=== PATIENT | male | born 1955 | race Caucasian/White ===

== ENCOUNTER 2017-08-09 06:11 | Inpatient (IN) | payer BC, MEDICARE ==
[2017-08-09] VITALS (7 sets, daily range): PULSE 77–96; O2SAT 92–95
[~2017-08-09] VITALS: Ht 177.8 cm; Wt 71.9 kg
[~2017-08-09 06:11] MED LIST: AMLO10TA2 PO; ASPI81TA23 PO; CYMB60CA PO; EPIP0.3I SQ; EZET10 PO; FENO160T PO; FENT75DI T-DERMAL; LISI-515 PO; MELO7.5T27 PO; MORP1TAB25 PO; OMEP40CA2 PO; TRAZ1TAB14 PO; [UNRECOGNIZED DRUG - CODE] SQ
[2017-08-09] MEDS ORDERED: PROTAMINE SULFATE 50 MG/5 ML VIAL ONE ×2 (06:51→11:13)
[2017-08-09] MEDS ORDERED: HEPARIN SODIUM - SQ 10,000 UNITS/ML VIAL ONE (06:51)
[2017-08-09] MEDS ORDERED: HEPARIN SODIUM - IV 10,000 UNITS/10 ML VIAL ONE ×2 (06:51→07:08)
[2017-08-09] MEDS ORDERED: VANCOMYCIN HCL 1000 MG VIAL ONE (06:51)
[2017-08-09] MEDS ORDERED: HEPARIN-NS/PF INJ 500 ML ONE (06:52)
[2017-08-09] MEDS ORDERED: BUPIVACAINE HCL PF 0.5% 30 ML VIAL ONE (06:52)
[2017-08-09] MEDS ORDERED: THROMBIN (TOPICAL) 20,000 UNIT SPRAY KIT ONE (06:52)
[2017-08-09] MEDS ORDERED: RIFAMPIN INJ 600 MG VIAL ONE (06:53)
[2017-08-09] MEDS ORDERED: SODIUM CHLORIDE 0.9% INJ 0 ML ONE (06:54)
[2017-08-09] MEDS ORDERED: SODIUM CHLORID 0.9% 500 ML IV PRN (07:00)
[2017-08-09] MEDS ORDERED: CHLORHEXIDINE GLUCONATE 2 % 1 PACK (2 CLOTHS) TOPICAL PRN (07:00)
[2017-08-09] MEDS ORDERED: LACTATED RINGER'S 1000 ML IV PRN (07:00)
[2017-08-09] MEDS ORDERED: POVIDONE IODINE 5% (ANTISEPSIS KIT) 4 APPLICATIONS EACH NARE PRN (07:00)
[2017-08-09] MEDS ORDERED: METOPROLOL TARTRATE 25 MG TAB PO PRN (07:00)
[2017-08-09] MEDS ORDERED: METO25TA3 PO (07:13)
--- NOTE | 2017-08-09 07:18 | PD.VS.PN ---
Pre-operative Note Pre-operative diagnosis: TAAA Planned procedure: Open retroperitoneal repair of TAAA Interval History: Pt is appropriately anxious but no other changes in health since I saw him in clinic. Ready for surgery. Labs: Hct 38 plt 401 creatinine 1.1 INR 1.0 UA negative Blood: T&C 4U PRBC T&C 4U FFP EKG: NSR, no acute ST changes TTE EF 57% Imaging: CXR negative for acute process CTA Reviewed again: 6.1 cm TAAA Orders: NPO Vanc 1g IV OCTOR (PCN Allergy) Post-operative destination: CVICU Operative site marked: Yes Consent: Informed consent has been obtained from Abdiel Sutton. I have explained the procedure in detail and discussed the risks, benefits, and potential complications. All questions have been answered. Patient contact information: Sister (Shannon) [phone] Alex Johnson MD Aug 09, 2017 07:18
[2017-08-09] MEDS ORDERED: MANNITOL INJ 100 ML ONE (10:02)
[2017-08-09] MEDS ORDERED: BUPIVACAINE LIPOSOME PF 1.3% 20 ML VIAL ONE (11:42)
--- NOTE | 2017-08-09 11:51 | HHI.PR ---
Immediate Post Op Note Procedure Date: Aug 09, 2017 Pre Op Diagnosis: TAAA Post Op Diagnosis: TAAA Surgeon: Alex Johnson Setter Up(s): Rachel Bay Procedure: 1. Retroperitoneal repair of TAAA with 20mm Dacron (23 minute supramesenteric X- clamp) 2. L renal artery bypass with 6mm Dacron 3. MAGUE reimplantation Findings: Successful repair + Doppler signals in SMA, B renals and feet at conclusions Complications: none apparent Specimen(s) removed: none for pathology Estimated blood loss: 1000mL Anesthesia: General Drains: None Fluids: 2500mL x'oid; 2U FFP; 500mL Cellsaver IVF Urinary Output (mLs): 300 Patient to: CVICU Patient Condition: Fair Implant/Devices: SEE IMPLANT LOG (if applicable) Date/Time of Procedure: SEE SURGICAL CARE RECORD Alex Johnson MD Aug 09, 2017 11:51
[2017-08-09] MEDS ORDERED: NALOXONE HCL 0.4 MG/ML AMP IV PUSH PRN (12:00)
[2017-08-09 13:02] LABS: HEMATOCRIT 28.8 % (39.0-51.0); MEAN CELL VOLUME 91.4 FL (80.0-100.0); MEAN CORPUSCULAR HEMOGLOBIN 29.7 PG (27.0-34.0); MEAN CORPUSCULAR HGB CONC 32.5 % (32.0-36.0); PLATELET COUNT 209 TH/MM3 (150-450); RED BLOOD COUNT 3.14 MIL/MM3 (4.50-5.90); RED CELL DISTRIBUTION WIDTH 14.1 % (11.6-17.2); REVIEW FLAG FINAL; WHITE BLOOD COUNT 15.5 TH/MM3 (4.0-11.0)
[2017-08-09] MEDS: D5-1/2 NS + KCL 20 MEQ INJ 1,000 ML IV SCH (13:37)
[2017-08-09] MEDS: MORPHINE SULFATE 30 MG/30 ML PCA IV SCH ×2 (13:39→17:41)
[2017-08-09 13:54] LABS: BICARBONATE 26.3 MEQ/L (21.0-32.0); POTASSIUM 4.1 MEQ/L (3.5-5.1)
[2017-08-09] MEDS: PCA - TOTAL MG MORPHINE DELIVERED PER SHIFT SCH ×2 (14:00→22:00)
[2017-08-09] MEDS: hydrALAZINE HCL 20 MG/ML VIAL IV PUSH PRN ×2 (14:29→18:23)
[2017-08-09] MEDS ORDERED: DEXTROSE 50% IN WATER 50 ML VIAL(D50) IV PUSH PRN (14:30)
[2017-08-09] MEDS ORDERED: GLUCAGON 1 MG/ML VIAL OTHER PRN (14:30)
[2017-08-09] MEDS: METOPROLOL TARTRATE 5 MG/5 ML VIAL IV PUSH PRN ×2 (14:30→20:19)
--- NOTE | 2017-08-09 14:45 | RADRPT ---
EXAM DATE/TIME: 08/09/2017 14:10 [facility] COMPARISON: No previous studies available for comparison. INDICATIONS : Post thoracic aortic aneurysm repair. MEDICAL HISTORY : None. SURGICAL HISTORY : None. ENCOUNTER: Initial ACUITY: 1 day PAIN SCORE: 9/10 LOCATION: Bilateral chest FINDINGS: Chest tube in place on the left. Sternal wires are noted. Nasogastric tube and central venous marge ter in good position. There is no pneumothorax. Lungs are clear. position. CONCLUSION: Left chest tube without pneumothorax. Support apparatus in good position. Robin Calloway MD FACR on August 09, 2017 at 14:41 Board Certified Radiologist. This report was verified electronically.
--- NOTE | 2017-08-09 15:05 | PD.CONS ---
[facility] Service Critical Care Medicine Consult Requested By Dr. Johnson Reason for Consult S/P open thoracoabdominal aneurysm repair Primary Care Physician No Primary Care Physician History of Present Illness This is a 61-year-old male that presented with 6.1 cm thoracic abdominal aortic aneurysm. Date the patient underwent an open retroperitoneal thoracoabdominal aneurysm repair with placement of chest tube. Operative report pending at time of dictation. Intraoperatively the patient received 3200 cc of crystalloid, 500 cc of Cell Saver, 2 units of FFP, with an estimated blood loss of approximately 1 L. The patient was extubated and transferred to CVICU. Critical care medicine was consulted. Upon my assessment the patient was noted to have systolic blood pressure in the 160s, when necessary antihypertensives initiated, patient complaining of extreme pain 10/10 on VAS pain scale.Patient reeducated on utilization of NUT PROCESS HELPER morphine pump. Review of Systems ROS Limitations: Clinical Condition (lethargic) Past Family Social History Allergies: Coded Allergies: Penicillins (Verified Allergy, Severe, SWELLING OF FACE AND HANDS, 08/09/17 ) Efbekwx-Sem-Smj Reductase Inhibitor (Verified Allergy, Severe, MUSCLE WEAKNESS AND CRAMPING, 08/09/17) bee venom protein (honey bee) (Verified Allergy, Severe, ANAPHYLAXIS, 08/09) Past Medical History COPD, achalasia, arthritis, coronary artery disease, skin cancer, depression, hypertension with history of PR Past Surgical History Knee surgery, splenectomy, wrist surgery, finger trigger release, back surgery and CABG Reported Medications Reviewed Active Ordered Medications See MAR, reviewed Family History Father of heart disease Social History History of smoking 2 packs a day and quit 2003. Patient is . Denied illicit drug use. Physical Exam Vital Signs Vital Signs Date Time Temp Pulse Resp B/P (MAP) Pulse Ox O2 Delivery O2 Flow Rate FiO2 08/09/17 13:39 16 08/09/17 13:00 77 08/09/17 07:04 98.7 70 20 180/97 (124) 96 Physical Exam GENERAL: Well-developed well-nourished male lethargic, in mild distress secondary to postoperative pain SKIN: Warm and dry. HEAD: Atraumatic. Normocephalic. EYES: Pupils equal and round. No scleral icterus. No injection or drainage. ENT: No nasal bleeding or discharge. Mucous membranes pink and moist. NECK: Trachea midline. No JVD. CARDIOVASCULAR: Normal rate, regular rhythm. RESPIRATORY: No accessory muscle use. Clear to auscultation. Breath sounds equal bilaterally. Currently on facemask, left chest tube 20 cm of suction no air leak noted GASTROINTESTINAL: Abdomen soft, non-tender, nondistended. No guarding. Incision site with Dermabond no drainage oozing or erythema, abdominal binder in place MUSCULOSKELETAL: Extremities without clubbing, cyanosis, or edema. No obvious deformities biphasic dopplerable and palpable pulses bilateral DP and PT. NEUROLOGICAL: Somnolent, easily arousable. RASS -1. No gross focal/sensory deficits. Follows commands in all 4 extremities. Laboratory Laboratory Tests Test 08/09/17 12:30 White Blood Count 15.5 Red Blood Count 3.14 Hemoglobin 9.4 Hematocrit 28.8 Mean Corpuscular Volume 91.4 Mean Corpuscular Hemoglobin 29.7 Mean Corpuscular Hemoglobin Concent 32.5 Red Cell Distribution Width 14.1 Platelet Count 209 Mean Platelet Volume 7.9 Blood Urea Nitrogen 27 Creatinine 1.20 Random Glucose 220 Calcium Level 7.8 Sodium Level 139 Potassium Level 4.1 Chloride Level 104 Carbon Dioxide Level 26.3 Anion Gap 9 Estimat Glomerular Filtration Rate 62 Result Diagram: 08/09/17 1230 08/09/17 1230 Imaging Postoperative Chest x-ray pending Septic Shock Reassessment Heart: Regular rate and rhythm Lungs: Clear Skin: Warm Peripheral Pulses: Bounding Right Radial Bounding Left Radial Bounding Right Dorsalis Pedis Bounding Left Dorsalis Pedis Bounding Right Posterior Tibial Bounding Left Posterior Tibial Capillary Refill: Brisk Assessment and Plan Problem List: (1) Postoperative pain ICD Code: G89.18 - Other acute postprocedural pain Status: Acute (2) Chronic pain disorder ICD Code: G89.4 - Chronic pain syndrome Status: Chronic (3) COPD (chronic obstructive pulmonary disease) ICD Code: J44.9 - Chronic obstructive pulmonary disease, unspecified Status: Chronic (4) Thoracoabdominal aortic aneurysm (TAAA) without rupture ICD Code: I71.6 - Thoracoabdominal aortic aneurysm, without rupture Status: Acute Assessment and Plan This is a 61-year-old male status post open thoracoabdominal aneurysm repair. Assessment S/P thoracoabdominal aneurysm repair POD #0 Postoperative pain Hyperglycemia COPD Plan Plan by systems: Neurologic: Morphine infusion pump NUT PROCESS HELPER Add multimodal pain analgesia-Ofirmev 1 g every 6 hours 24 hours scheduled Neurochecks per ICU protocol Respiratory: Maintain O2 sat greater than 92% Patient currently on facemask weaned down to nasal cannula Initiate incentive spirometry tomorrow DuoNeb every 4 hours when necessary F/U post op chest x-ray Cardiovascular: Maintain systolic blood pressure per Vasc Surgery recommendations <140 mmHg Hydralazine 20 mg every 6 hours PRN SBP > 150mmHg Metoprolol 2.5 mg q 6 hr Renal: Maintain zapien -- Strict I/Os FEN/GI: Maintain NPO status Monitor BMP Zofran for nausea Heme/ID: Follow-up CBC. Postop hemoglobin 9.6 Obtain cultures if clinically indicated Endocrine: Glucose level 220 , maintain < 180mg/dl Glucose monitoring per ICU protocol. Low dose regimen -- SSI Prophylaxis: GI Prophylaxis famotidine DVT Prophylaxis -- SCDs Initiation of pharmacological DVT prophylaxis per vascular surgery recommendations lovenox on 08/10 Lines: Right IJ 08/09 intraop, refer IVs 2 Dispo: This patient remains critically ill with one or more organ systems which are or may become a threat to life. I have spent in excess of 45 minutes discontinuously in the care and management of this patient. This time is exclusive of procedures, and includes, but is not limited to, evaluation of the patient, review of the medical record, discussions with family, consultants, nursing staff, or respiratory therapy, and documentation in the medical record. Code Status Full Discussed Condition With Dr. Johnson, and CONTINUOUS PROCESS MACHINE OPERATOR at bedside (Zara Fernandez MD Aug 09, 2017 15:05
[2017-08-09] MEDS ORDERED: ONDANSETRON HCL 4 MG/2 ML VIAL IV PUSH PRN (15:15)
[2017-08-09] MEDS: ACETAMINOPHEN 1000 MG/100 ML 100 ML IV SCH ×2 (15:47→20:18)
[2017-08-09] MEDS: INSULIN ASPART SUPPLEMENTAL SCALE SQ SCH ×2 (16:55→20:19)
[2017-08-09] MEDS: ATORVASTATIN 40 MG TAB PO SCH ×2 (19:54→19:57)
[2017-08-09] MEDS: FAMOTIDINE 20 MG/2 ML VIAL IV PUSH SCH (20:19)
[2017-08-09] MEDS: niCARdipine INJ 25 MG in SODIUM CHLOR 0.9% 250 ML INJ 240 ML IV PRN (22:53)
[2017-08-09] MEDS: oxyCODONE/ACETAMINOPHEN 10 MG/325 MG TAB PO PRN (23:45)
[2017-08-10] VITALS (9 sets, daily range): BP systolic 131–163; BP diastolic 48–83; PULSE 85–98; RESP 16–18; TEMP 98.5–99.1; O2SAT 91–98
[2017-08-10] MEDS: MORPHINE SULFATE 30 MG/30 ML PCA IV SCH ×2 (00:48→13:51)
[2017-08-10] MEDS: D5-1/2 NS + KCL 20 MEQ INJ 1,000 ML IV SCH (00:55)
[2017-08-10] MEDS: niCARdipine INJ 25 MG in SODIUM CHLOR 0.9% 250 ML INJ 240 ML IV PRN ×3 (01:22→06:42)
[2017-08-10] MEDS: hydrALAZINE HCL 20 MG/ML VIAL IV PUSH PRN ×5 (02:20→23:57)
[2017-08-10] MEDS: ACETAMINOPHEN 1000 MG/100 ML 100 ML IV SCH ×2 (02:20→10:22)
[2017-08-10] MEDS: PCA - TOTAL MG MORPHINE DELIVERED PER SHIFT SCH ×3 (06:00→22:00)
[2017-08-10 06:08] LABS: HEMATOCRIT 30.5 % (39.0-51.0); MEAN CELL VOLUME 90.3 FL (80.0-100.0); MEAN CORPUSCULAR HEMOGLOBIN 30.5 PG (27.0-34.0); MEAN CORPUSCULAR HGB CONC 33.7 % (32.0-36.0); PLATELET COUNT 237 TH/MM3 (150-450); RED BLOOD COUNT 3.38 MIL/MM3 (4.50-5.90); RED CELL DISTRIBUTION WIDTH 13.9 % (11.6-17.2); REVIEW FLAG FINAL; WHITE BLOOD COUNT 10.9 TH/MM3 (4.0-11.0)
[2017-08-10] MEDS: oxyCODONE/ACETAMINOPHEN 10 MG/325 MG TAB PO PRN ×2 (06:15→20:55)
[2017-08-10] MEDS: METOPROLOL TARTRATE 5 MG/5 ML VIAL IV PUSH PRN (06:47)
[2017-08-10] MEDS: INSULIN ASPART SUPPLEMENTAL SCALE SQ SCH ×4 (08:00→21:00)
[2017-08-10] MEDS ORDERED: RESP: ALBUTEROL 2.5 MG/IPRATROPIUM 0.5 MG NEB (PRN) NEB (08:15)
[2017-08-10] MEDS: RESP: ALBUTEROL 2.5 MG/IPRATROPIUM 0.5 MG NEB (PRN) NEB ×2 (08:45→11:42)
--- NOTE | 2017-08-10 09:08 | HHI.CCPN ---
Subjective Remarks/Hospital Course This is a 61-year-old male that presented with 6.1 cm thoracic abdominal aortic aneurysm. Date the patient underwent an open retroperitoneal thoracoabdominal aneurysm repair with placement of chest tube. Operative report pending at time of dictation. Intraoperatively the patient received 3200 cc of crystalloid, 500 cc of Cell Saver, 2 units of FFP, with an estimated blood loss of approximately 1 L. The patient was extubated and transferred to CVICU. Critical care medicine was consulted. Upon my assessment the patient was noted to have systolic blood pressure in the 160s, when necessary antihypertensives initiated, patient complaining of extreme pain 10/10 on VAS pain scale.Patient reeducated on utilization of LOADMASTER morphine pump. Subjective: 08/10: Afebrile. Patient hypertensive during the night was placed on a nicardipine infusion, with noted high-volume IV fluids, inability to concentrate. Patient placed on this a.m., Catapres patch, labetalol with increased frequency as well as hydralazine and weaning off nicardipine to maintain SBP 140's. Patient noted to be in chronic pain VAS scale 10 over 10, fentanyl patch noted to be greater than 4 days, fentanyl patch 0.75 mics every 72 hours renewed. Patient continues on morphine LOADMASTER. FiO2 noted requirements noted to be increased patient now on facemask chest x-ray pending. Objective Vital Signs Date Time Temp Pulse Resp B/P (MAP) Pulse Ox O2 Delivery O2 Flow Rate FiO2 08/10/17 08:47 92 Simple Mask 8.00 08/10/17 06:42 94 179/68 08/10/17 06:00 18 08/09/17 07:04 98.7 Intake and Output 08/10/17 08/10/17 08/11/17 08:00 16:00 00:00 Intake Total 1502.8 ml Output Total 1810 ml Balance -307.2 ml Result Diagram: 08/10/17 0600 08/10/17 06 Imaging Postoperative Chest x-ray pending Objective Remarks GENERAL: Well-developed well-nourished male in mild distress with complaints of pain SKIN: Warm and dry. HEAD: Atraumatic. Normocephalic. EYES: Pupils equal and round. No scleral icterus. No injection or drainage. ENT: No nasal bleeding or discharge. Mucous membranes pink and moist. NECK: Trachea midline. No JVD. CARDIOVASCULAR: Normal rate, regular rhythm. RESPIRATORY: Shallow respirations this a.m. No accessory muscle use. Clear to auscultation. Breath sounds equal bilaterally. Currently on facemask, left chest tube 20 cm of suction no air leak noted. O2 saturation 93% on facemask GASTROINTESTINAL: Abdomen soft, non-tender, nondistended. No guarding. Incision site with Dermabond no drainage oozing or erythema, abdominal binder in place MUSCULOSKELETAL: Extremities without clubbing, cyanosis, or edema. No obvious deformities biphasic dopplerable and palpable pulses bilateral DP and PT. NEUROLOGICAL: RASS -2. No gross focal/sensory deficits. Follows commands in all 4 extremities. 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 Assessment S/P thoracoabdominal aneurysm repair POD #1 Postoperative pain Hyperglycemia COPD Plan Plan by systems: Neurologic: Morphine infusion pump LOADMASTER Resume Fentanyl patch 0.75 mcgs every 72 hours (home med) Add multimodal pain analgesia-Ofirmev 1 g every 6 hours 24 hours scheduled Neurochecks per ICU protocol Respiratory: Maintain O2 sat greater than 92%, Patient currently on facemask, with O2 saturation 93% Beginincentive spirometry DuoNeb every 4 hours when necessary F/U repeat chest x-ray Cardiovascular: Maintain systolic blood pressure per Vasc Surgery recommendations <140 mmHg Currently on nicardipine infusion 15 mg/hour(150cc/hr) ,continue to wean off Hydralazine 20 mg every 6 hours PRN SBP > 150mmHg Labetalol 20 mg q 1 hr PRN , Metoprolol 2.5 mg q 6 hr PRN, Hydralazine 20 mg q 1 hrPRN Catapres patch 0.2mg Renal: Maintain zapien -- Strict I/Os FEN/GI: Maintain NPO status- management per Vasc surgery IVF D5 1/2 @ NS 84/hr Monitor BMP Zofran for nausea Heme/ID: Follow-up CBC. Postop hemoglobin 9.6 Obtain cultures if clinically indicated Endocrine: Glucose level 220 , maintain < 180mg/dl Glucose monitoring per ICU protocol. Low dose regimen -- SSI Prophylaxis: GI Prophylaxis famotidine DVT Prophylaxis -- SCDs Initiation of pharmacological DVT prophylaxis per vascular surgery recommendations lovenox on 08/10 Lines: Right IJ 08/09 intraop, refer IVs 2 Dispo: This patient remains critically ill with one or more organ systems which are or may become a threat to life. I have spent in excess of 35 minutes discontinuously in the care and management of this patient. This time is exclusive of procedures, and includes, but is not limited to, evaluation of the patient, review of the medical record, discussions with family, consultants, nursing staff, or respiratory therapy, and documentation in the medical record. Physician Zara Del Angel MD Aug 10, 2017 09:08
--- NOTE | 2017-08-10 09:11 | PD.VS.PN ---
Subjective POD #: 1 Procedure(s): TAAA with L RA bypass and MAGUE reimplantation Subjective/Hospital Course looks great; c/o flank pain; no SOB hypertensive overnight, on gtt. no nausea excellent UOP Objective Vitals/I&O Date Time Temp Pulse Resp B/P (MAP) Pulse Ox O2 Delivery O2 Flow Rate FiO2 08/10/17 08:47 92 Simple Mask 8.00 08/10/17 07:00 91 Simple Mask 9.00 08/10/17 06:42 94 179/68 08/10/17 06:00 18 08/10/17 03:16 96 154/60 08/10/17 03:16 17 08/10/17 03:00 98 08/10/17 03:00 95 Simple Mask 9.00 08/10/17 01:57 18 08/10/17 01:22 95 170/72 08/10/17 01:00 98 165/65 08/10/17 00:48 18 08/10/17 00:48 18 08/10/17 00:00 96 165/72 08/09/17 23:45 92 Simple Mask 10.00 08/09/17 23:15 95 184/66 08/09/17 23:00 95 08/09/17 23:00 95 184/66 08/09/17 23:00 93 Simple Mask 9.00 08/09/17 22:53 91 191/77 08/09/17 22:15 96 08/09/17 22:00 18 08/09/17 20:37 95 Nasal Cannula 4.00 08/09/17 19:00 93 Nasal Cannula 4.00 08/09/17 18:15 92 Nasal Cannula 4.00 08/09/17 17:41 20 08/09/17 15:10 80 08/09/17 13:39 16 08/09/17 13:00 77 08/10/17 08/10/17 08/10/17 07:00 15:00 23:00 Intake Total 1502.8 ml Output Total 1810 ml Balance -307.2 ml Exam: resting comfortably 5/5 LE strength incision ok abdomen soft Laboratory Laboratory Tests Test 08/09/17 12:30 08/10/17 06:00 White Blood Count 15.5 10.9 Red Blood Count 3.14 3.38 Hemoglobin 9.4 10.3 Hematocrit 28.8 30.5 Mean Corpuscular Volume 91.4 90.3 Mean Corpuscular Hemoglobin 29.7 30.5 Mean Corpuscular Hemoglobin Concent 32.5 33.7 Red Cell Distribution Width 14.1 13.9 Platelet Count 209 237 Mean Platelet Volume 7.9 7.8 Blood Urea Nitrogen 27 22 Creatinine 1.20 1.11 Random Glucose 220 158 Calcium Level 7.8 8.3 Sodium Level 139 140 Potassium Level 4.1 3.0 Chloride Level 104 104 Carbon Dioxide Level 26.3 28.0 Anion Gap 9 8 Estimat Glomerular Filtration Rate 62 67 Assessment and Plan Plan POD#1 s/p TAAA repair 1. D/C NGT and if kendrick that, ok for clears this afternoon 2. OOB TC/PT 3. HL IVF 4. Resume home po antihypertensives 5. H2O seal CT 6. replete K 7. Bernabe in until tomorrow for adequate UOP after major aortic reconstruction Discharge Planning likely 5-6 days Alex Johnson MD Aug 10, 2017 09:11
[2017-08-10] MEDS: LABETALOL HCL 100 MG/20 ML VIAL IV PUSH PRN (09:28)
[2017-08-10] MEDS: ASPIRIN 81 MG CHEW TAB PO SCH (09:28)
[2017-08-10] MEDS: FAMOTIDINE 20 MG/2 ML VIAL IV PUSH SCH ×2 (09:28→20:54)
[2017-08-10] MEDS ORDERED: cloNIDine HCL 0.2 MG/24 HR PATCH T-DERMAL SCH (10:00)
--- NOTE | 2017-08-10 10:14 | RADRPT ---
EXAM DATE/TIME: 08/10/2017 08:53 [facility] COMPARISON: CHEST SINGLE AP, August 09, 2017, 14:10. INDICATIONS : Congestion and shortness of breath. MEDICAL HISTORY : None. SURGICAL HISTORY : Abdominal aortic aneurysm. CABG 2003. ENCOUNTER: Subsequent ACUITY: 2 days PAIN SCORE: 0/10 LOCATION: Bilateral chest FINDINGS: A single view of the chest demonstrates the lungs to be symmetrically aerated with minimal interstiti al prominence possibly representing some degree of vascular congestion. Left-sided thoracostomy tube is unchanged in position without pneumothorax. No effusions. Heart size is normal. Intact median ster notomy wires and coronary ostial rings characteristic of prior CABG. Right IJ central venous catheter with the tip projecting over the central venous system. Nasogastric tube is somewhat shallow with th e tip just past the GE junction in the gastric cardia. The side port is above the GE junction. CONCLUSION: 1. Minimal interstitial prominence possibly representing severe vascular congestion or volume overloa d. 2. Nasogastric tube is shallow with the tip just past the GE junction. Side-port is above the GE junc tion. 3. Otherwise, right IJ central venous catheter and a left-sided thoracostomy tube are unchanged in po sition. No pneumothorax. Christopher Mata MD on August 10, 2017 at 10:11 Board Certified Radiologist. This report was verified electronically.
[2017-08-10] MEDS: fentaNYL 75 MCG/HR PATCH T-DERMAL SCH (11:40)
[2017-08-10] MEDS: ENOXAPARIN SODIUM 40 MG/0.4 ML SYRINGE SQ SCH (13:51)
[2017-08-10] MEDS: ATORVASTATIN 40 MG TAB PO SCH (20:59)
[2017-08-11] VITALS (10 sets, daily range): BP systolic 153–190; BP diastolic 73–96; PULSE 73–106; RESP 16–22; TEMP 98–100.3; O2SAT 94–98
[2017-08-11] MEDS: hydrALAZINE HCL 20 MG/ML VIAL IV PUSH PRN ×3 (01:15→09:40)
[2017-08-11 05:09] LABS: HEMATOCRIT 29.7 % (39.0-51.0); MEAN CORPUSCULAR HEMOGLOBIN 30.1 PG (27.0-34.0); MEAN CORPUSCULAR HGB CONC 33.1 % (32.0-36.0); PLATELET COUNT 245 TH/MM3 (150-450); RED BLOOD COUNT 3.27 MIL/MM3 (4.50-5.90); RED CELL DISTRIBUTION WIDTH 14.3 % (11.6-17.2); REVIEW FLAG FINAL
[2017-08-11 05:27] LABS: BICARBONATE 27.1 MEQ/L (21.0-32.0); POTASSIUM 3.2 MEQ/L (3.5-5.1)
[2017-08-11] MEDS: LABETALOL HCL 100 MG/20 ML VIAL IV PUSH PRN ×13 (05:42→23:33)
[2017-08-11] MEDS: PCA - TOTAL MG MORPHINE DELIVERED PER SHIFT SCH ×3 (06:00→22:00)
--- NOTE | 2017-08-11 06:22 | MP ---
cc: LAUREN JOHNSON MD DATE OF SURGERY 08/09/2017 PREOPERATIVE DIAGNOSIS Thoracoabdominal aortic aneurysm. POSTOPERATIVE DIAGNOSIS Thoracoabdominal aortic aneurysm. PROCEDURE 1. Open retroperitoneal repair of thoracoabdominal aortic aneurysm with 20 mm Dacron graft including 23 minutes of super-mesenteric ischemia. 2. Left renal artery bypass with a 6 mm Dacron 3. Inferior mesenteric artery reimplantation. ATTENDING SURGEON Lauren Johnson MD LITERACY COORDINATOR SURGEON Rachel Bay MD ANESTHESIA General. MEDICATIONS Mr. Sutton is a 61-year-old gentleman with a thoracoabdominal aortic aneurysm; it is 6.1 cm and the patient is asymptomatic. He is not a standard endovascular candidate and he is taken to the operating room for open surgical repair. DESCRIPTION OF PROCEDURE Informed consent was obtained from the patient. He was taken to the operating room and placed supine on the operating room table. Appropriate time-out was taken to insure the patient's identity, the operative site and planned procedure. The administration of 1 gram of vancomycin was initiated prior to skin incision, will be discontinued after a single preoperative dose. Vancomycin was chosen because of the patient's PENICILLIN ALLERGY. Everyone in the room agreed with the time-out we proceeded. He was placed in thoracoabdominal position with all pressure points carefully padded. A retroperitoneal incision was made from the lateral border of the rectus muscle, extending up through the ribs at about the 9th intercostal space. The muscle was divided with electrocautery and the peritoneum was identified and swept medially. A portion of the rib was resected and the diaphragm was transected several cm to facilitate cephalad exposure. The aorta was identified and the ureter was kept at the medial aspect of the incision. The left renal artery was identified, encircled with vessel loop and then the ryan of the diaphragm was transected with electrocautery. The right renal artery and SMA were circumferentially dissected, encircled with vessel loop and the celiac artery was identified. The aorta was circumferentially dissected in between the celiac and SMA and a vessel loop was placed in this location. We dissected at the caudal aspect of the aorta down to the common iliac arteries enough to place clamps on this. At this point the patient was systemically heparinized. Distal control of the common iliac arteries were obtained with transplant profunda clamps and the left renal artery was transected and a Serrefine clamp was placed on the renal artery and the right renal artery and SMA were occluded with transplant profunda clamps. A Zinger clamp was placed on the super-mesenteric aorta and the aorta was opened. Lumbar branches were oversewn with 2-0 silk suture. A filling ring was identified and a 20 mm Dacron was sewn end-to-end to the aorta with running 3-0 Prolene suture. Prior to clamping the aorta, a 6 mm Dacron was sewn onto the side of the 20 mm Dacron as planned branch to the renal artery. After the proximal aortic anastomosis was completed, a Uriel Softjaw was placed on the Dacron graft and the clamps released, thereby reperfusing the right renal artery and superior mesenteric artery. The total ischemic time was 23 minutes. The left renal artery was spatulated and the 6 mm arm that had been previously sewn to the 20 mm Dacron was spatulated as well and an end-to-end aorta to he left renal artery bypass was performed with running 6-0 Prolene suture. At the completion it was flushed, noted to be hemostatic and the clamps released. There was a nice pulse in the distal renal artery. The distal 20 mm Dacron was then spatulated and sewn end-to-end to the terminal aorta with running 3-0 Prolene suture. At the completion it was flushed, noted to be hemostatic. The clamps were released in conjunction with anesthesia and there were nice Doppler signals in the foot. The heparin was reversed with protamine. The wound was made hemostatic, irrigated and confirmed to be hemostatic. A 28-Amharic chest tube was placed through a separate stab wound into the chest and secured to the skin with a 2-0 nylon suture. The diaphragm was reapproximated with 2-0 Prolene and the ribs were reapproximated with #1 Vicryl. The fascia of the abdominal cavity was reapproximated with looped PDS and then 2-0 Polysorb, 3-0 Polysorb and 4-0 Monocryl were used to close the incision. The sponge and needle counts were correct at the end of the case. I was present and scrubbed and performed the entire procedure. MD DORIS Patterson/YONATAN /5:36 PM /5:51 AM MTDErna
--- NOTE | 2017-08-11 06:24 | PD.VS.PN ---
Subjective POD #: 2 Procedure(s): TAAA with L RA bypass and MAGUE reimplantation Subjective/Hospital Course pain modestly controlled intermittent low sats but no SOB kendrick clears was OOB TC yesterday Objective Vitals/I&O Date Time Temp Pulse Resp B/P (MAP) Pulse Ox O2 Delivery O2 Flow Rate FiO2 08/11/17 06:00 20 08/11/17 04:00 99.6 106 22 171/93 (119) 96 162/73 (102) 08/11/17 03:46 97 Simple Mask 8.00 08/11/17 03:00 106 08/11/17 00:00 98.2 94 18 171/86 (114) 97 190/80 (116) 08/10/17 23:50 98 Simple Mask 10.00 08/10/17 23:00 92 08/10/17 22:00 18 08/10/17 22:00 16 08/10/17 21:39 98 Simple Mask 10.00 08/10/17 19:40 97 Simple Mask 10.00 08/10/17 19:00 99.1 93 16 163/83 (109) 97 158/55 (89) 08/10/17 19:00 89 08/10/17 15:11 97 Simple Mask 10.00 08/10/17 15:06 98.6 86 18 143/50 (81) 97 151/48 (82) 08/10/17 15:00 86 08/10/17 14:00 20 08/10/17 13:51 18 08/10/17 11:00 85 08/10/17 11:00 98.6 86 18 143/50 (81) 97 131/70 (90) 08/10/17 11:00 97 Simple Mask 10.00 08/10/17 08:47 92 Simple Mask 8.00 08/10/17 07:00 98.5 93 16 150/76 (100) 91 144/58 (86) 08/10/17 07:00 91 Simple Mask 9.00 08/10/17 07:00 92 08/10/17 06:42 94 179/68 08/11/17 08/11/17 08/11/17 07:00 15:00 23:00 Intake Total 720 ml Output Total 720 ml Balance 0 ml Exam: resting comfortably neuro intact, BUSBY Incisions: c/d/i Laboratory Laboratory Tests Test 08/11/17 04:10 White Blood Count 13.0 Red Blood Count 3.27 Hemoglobin 9.8 Hematocrit 29.7 Mean Corpuscular Volume 91.0 Mean Corpuscular Hemoglobin 30.1 Mean Corpuscular Hemoglobin Concent 33.1 Red Cell Distribution Width 14.3 Platelet Count 245 Mean Platelet Volume 8.4 Blood Urea Nitrogen 27 Creatinine 1.06 Random Glucose 150 Calcium Level 9.4 Sodium Level 138 Potassium Level 3.2 Chloride Level 105 Carbon Dioxide Level 27.1 Anion Gap 6 Estimat Glomerular Filtration Rate 71 Assessment and Plan Plan POD#2 s/p TAAA repair 1. cardiac diet 2. OOB and ambulate; PT 3. Increase beta melissa scheduled 4. d/c CT today 5. replete K and recheck tomorrow 6. D/C Bernabe 7. D/C A-line 8. Transfer to CPCU Discharge Planning likely 5-6 days Alex Johnson MD Aug 11, 2017 06:24
[2017-08-11] MEDS: RESP: ALBUTEROL 2.5 MG/IPRATROPIUM 0.5 MG NEB (PRN) NEB (07:23)
[2017-08-11] MEDS: ASPIRIN 81 MG CHEW TAB PO SCH (07:54)
[2017-08-11] MEDS: POTASSIUM CHLORIDE 10 MEQ CONTROLLED RELEASE TAB PO SCH ×2 (07:54→22:04)
[2017-08-11] MEDS: FAMOTIDINE 20 MG/2 ML VIAL IV PUSH SCH ×2 (07:56→22:03)
--- NOTE | 2017-08-11 08:07 | HHI.CCPN ---
Subjective Remarks/Hospital Course This is a 61-year-old male that presented with 6.1 cm thoracic abdominal aortic aneurysm. Date the patient underwent an open retroperitoneal thoracoabdominal aneurysm repair with placement of chest tube. Operative report pending at time of dictation. Intraoperatively the patient received 3200 cc of crystalloid, 500 cc of Cell Saver, 2 units of FFP, with an estimated blood loss of approximately 1 L. The patient was extubated and transferred to CVICU. Critical care medicine was consulted. Upon my assessment the patient was noted to have systolic blood pressure in the 160s, when necessary antihypertensives initiated, patient complaining of extreme pain 10/10 on VAS pain scale.Patient reeducated on utilization of [employer] ASSEMBL[employer] morphine pump. Subjective: 08/10: Afebrile. Patient hypertensive during the night was placed on a nicardipine infusion, with noted high-volume IV fluids, inability to concentrate. Patient placed on this a.m., Catapres patch, labetalol with increased frequency as well as hydralazine and weaning off nicardipine to maintain SBP 140's. Patient noted to be in chronic pain VAS scale 10 over 10, fentanyl patch noted to be greater than 4 days, fentanyl patch 0.75 mics every 72 hours renewed. Patient continues on morphine [employer] ASSEM[employer]ER. FiO2 noted requirements noted to be increased patient now on facemask chest x-ray pending. 08/11: Tmax 99.6 . No acute events overnight, patient tolerating clear liquid diet, expelling flatus. Tolerating up out of the bed to chair. Encouraged to continue use of incentive spirometry, and bronchodilator treatments.SBP elevated this a.m., PRN antihypertensives administered. Objective Vital Signs Date Time Temp Pulse Resp B/P (MAP) Pulse Ox O2 Delivery O2 Flow Rate FiO2 08/11/17 07:23 94 Simple Mask 6.00 08/11/17 06:00 20 08/11/17 04:00 99.6 106 171/93 (119) 162/73 (102) Intake and Output 08/11/17 08/11/17 08/12/17 08:00 16:00 00:00 Intake Total 720 ml Output Total 890 ml Balance -170 ml Result Diagram: 08/11/1740908/11/17409 Imaging Postoperative Chest x-ray pending Objective Remarks GENERAL: Well-developed well-nourished male in lying in bed in no acute distress. Pain well controlled SKIN: Warm and dry. HEAD: Atraumatic. Normocephalic. EYES: Pupils equal and round. No scleral icterus. No injection or drainage. ENT: No nasal bleeding or discharge. Mucous membranes pink and moist. NECK: Trachea midline. No JVD. CARDIOVASCULAR: Normal rate, regular rhythm. RESPIRATORY: Shallow respirations this a.m. No accessory muscle use. Clear to auscultation. Breath sounds equal bilaterally. Currently on facemask, left chest tube 20 cm of suction no air leak noted. O2 saturation 93% on facemask GASTROINTESTINAL: Abdomen soft, non-tender, nondistended. No guarding. Incision site with Dermabond no drainage oozing or erythema, abdominal binder in place, bowel sounds active. NGT to LIWS. MUSCULOSKELETAL: Extremities without clubbing, cyanosis, or edema. No obvious deformities bilateral palpable pulses upper and lower extremities NEUROLOGICAL: RASS -2. No gross focal/sensory deficits. Follows commands in all 4 extremities. 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 Assessment S/P thoracoabdominal aneurysm repair POD #2 Postoperative pain-controlled Hyperglycemia COPD Plan Plan by systems: Neurologic: Morphine infusion pump [employer]ER Continue Fentanyl patch 0.75 mcgs every 72 hours (home med) Neurochecks per ICU protocol Respiratory: Maintain O2 sat greater than 92%, Patient currently on facemask, with O2 saturation 93% Continue incentive spirometry every 4 hours while awake DuoNeb every 4 hours when necessary 12/6: chest x-ray-no acute disease process Cardiovascular: Maintain [facility] <[facility] mmHg Currently on nicardipine infusion 15 mg/hour(150cc/hr) ,continue to wean off Hydralazine 20 mg every 6 hours PRN SBP > 150mmHg Labetalol 20 mg q 1 hr PRN , Metoprolol 2.5 mg q 6 hr PRN, Hydralazine 20 mg q 1 hrPRN Catapres patch 0.2mg 08/10 A-line to be discontinued Renal: -- Strict I/Os FEN/GI: Maintain NPO status- management per Vasc surgery IVF D5 1/2 @ NS 84/hr discontinued 08/10 Monitor BMP Zofran for nausea Consider initiation of bowel regimen Heme/ID: Monitor CBC Obtain cultures if clinically indicated Endocrine: Glucose level 220 , maintain < 180mg/dl Glucose monitoring per ICU protocol. Low dose regimen -- SSI Prophylaxis: GI Prophylaxis famotidine DVT Prophylaxis -- SCDs Initiation of pharmacological DVT prophylaxis per vascular surgery recommendations lovenox on 08/10 Lines: Right IJ 08/09 intraop, Peripheral IVs 2 Dispo: Level II Discussed with ELECTRIC METER TECHNICIAN (Rhona) and patient at bedside Physician Zara Del Angel MD Aug 11, 2017 08:07
[2017-08-11] MEDS: INSULIN ASPART SUPPLEMENTAL SCALE SQ SCH ×4 (08:13→21:00)
[2017-08-11] MEDS ORDERED: INFLUENZA VIRUS VACCINE (QUADRIVALENT) 0.5 ML SYR IM ONE (09:00)
[2017-08-11] MEDS ORDERED: PNEUMOCOCCAL POLYVALENT INJ 25 MCG/0.5 ML SYR IM ONE (09:00)
[2017-08-11] MEDS ORDERED: METOPROLOL TARTRATE 25 MG TAB PO SCH ×2 (09:00)
[2017-08-11] MEDS: EZETIMIBE 10 MG TAB PO SCH (09:20)
[2017-08-11] MEDS: ENOXAPARIN SODIUM 40 MG/0.4 ML SYRINGE SQ SCH (12:09)
[2017-08-11] MEDS: MORPHINE SULFATE 30 MG/30 ML PCA IV SCH (12:11)
[2017-08-11] MEDS: ATORVASTATIN 40 MG TAB PO SCH (21:00)
[2017-08-11] MEDS: METOPROLOL TARTRATE 100 MG TAB PO SCH (22:04)
[2017-08-12] VITALS (17 sets, daily range): BP systolic 116–167; BP diastolic 58–81; PULSE 70–90; RESP 16–19; TEMP 98.2–99.5; O2SAT 92–95
[2017-08-12] MEDS: hydrALAZINE HCL 20 MG/ML VIAL IV PUSH PRN ×3 (00:05→23:28)
[2017-08-12] MEDS: LABETALOL HCL 100 MG/20 ML VIAL IV PUSH PRN ×2 (01:12→04:13)
[2017-08-12 05:37] LABS: BICARBONATE 28.6 MEQ/L (21.0-32.0); POTASSIUM 3.8 MEQ/L (3.5-5.1)
[2017-08-12] MEDS: PCA - TOTAL MG MORPHINE DELIVERED PER SHIFT SCH (06:00)
--- NOTE | 2017-08-12 06:43 | PD.VS.PN ---
Subjective POD #: 3 Procedure(s): TAAA with L RA bypass and MAGUE reimplantation Subjective/Hospital Course pain better controlled; nausea subsided this morning still req freq IV antihypertensive medications Objective Vitals/I&O Date Time Temp Pulse Resp B/P (MAP) Pulse Ox O2 Delivery O2 Flow Rate FiO2 08/12/17 06:00 16 08/12/17 03:00 99.4 80 16 147/79 (101) 95 08/12/17 03:00 95 Simple Mask 10.00 08/12/17 03:00 77 08/11/17 23:00 76 08/11/17 23:00 99.7 78 16 179/96 (123) 95 08/11/17 23:00 95 Simple Mask 10.00 08/11/17 22:56 98 Simple Mask 10.00 08/11/17 22:00 16 08/11/17 19:00 99.0 78 16 153/78 (103) 97 08/11/17 19:00 76 08/11/17 19:00 94 Simple Mask 10.00 08/11/17 15:00 98.4 88 16 174/94 (120) 97 08/11/17 15:00 73 08/11/17 15:00 97 Simple Mask 8.00 08/11/17 12:15 18 08/11/17 12:11 18 08/11/17 11:00 82 08/11/17 11:00 98.0 85 18 170/82 (111) 96 Arterial Line 08/11/17 11:00 96 Simple Mask 8.00 08/11/17 07:23 94 Simple Mask 6.00 08/11/17 07:00 95 Simple Mask 8.00 08/11/17 07:00 100.3 96 16 174/94 (120) 95 189/76 (113) 08/11/17 07:00 90 08/12/17 08/12/17 08/12/17 07:00 15:00 23:00 Intake Total 936 ml Output Total 1090 ml Balance -154 ml Exam: resting comfortably no distress abdomen nontender incision c/d/i Laboratory Laboratory Tests Test 08/12/17 04:45 Blood Urea Nitrogen 24 Creatinine 0.81 Random Glucose 117 Calcium Level 9.6 Sodium Level 137 Potassium Level 3.8 Chloride Level 102 Carbon Dioxide Level 28.6 Anion Gap 6 Estimat Glomerular Filtration Rate 97 Assessment and Plan Plan POD#3 s/p TAAA repair 1. cardiac diet 2. OOB and ambulate; PT 3. Increased po antihypertensive regimen 4. d/c CT today 5. Transfer to CPCU 6. d/c CVL Discharge Planning likely 5-6 days Alex Johnson MD Aug 12, 2017 06:43
[2017-08-12] MEDS ORDERED: LIDOCAINE HCL 1% 20 ML VIAL ONE (07:26)
[2017-08-12] MEDS ORDERED: BISACODYL 10 MG SUPP RECTAL PRN (07:45)
[2017-08-12] MEDS ORDERED: LACTULOSE SYRUP 20 GM/30 ML CUP PO PRN (07:45)
[2017-08-12] MEDS ORDERED: SENNOSIDES 8.6 MG TAB PO PRN (07:45)
[2017-08-12] MEDS ORDERED: MAGNESIUM HYDROXIDE SUSP 30 ML CUP PO PRN (07:45)
--- NOTE | 2017-08-12 07:58 | HHI.CCPN ---
Subjective Remarks/Hospital Course This is a 61-year-old male that presented with 6.1 cm thoracic abdominal aortic aneurysm. Date the patient underwent an open retroperitoneal thoracoabdominal aneurysm repair with placement of chest tube. Operative report pending at time of dictation. Intraoperatively the patient received 3200 cc of crystalloid, 500 cc of Cell Saver, 2 units of FFP, with an estimated blood loss of approximately 1 L. The patient was extubated and transferred to CVICU. Critical care medicine was consulted. Upon my assessment the patient was noted to have systolic blood pressure in the 160s, when necessary antihypertensives initiated, patient complaining of extreme pain 10/10 on VAS pain scale.Patient reeducated on utilization of TRAFFIC SIGNAL SUPERVISOR MAINTENANCE morphine pump. Subjective: 08/10: Afebrile. Patient hypertensive during the night was placed on a nicardipine infusion, with noted high-volume IV fluids, inability to concentrate. Patient placed on this a.m., Catapres patch, labetalol with increased frequency as well as hydralazine and weaning off nicardipine to maintain SBP 140's. Patient noted to be in chronic pain VAS scale 10 over 10, fentanyl patch noted to be greater than 4 days, fentanyl patch 0.75 mics every 72 hours renewed. Patient continues on morphine [employer]NAL SUPER[employer] MAINTENANCE. FiO2 noted requirements noted to be increased patient now on facemask chest x-ray pending. 08/11: Tmax 99.6 . No acute events overnight, patient tolerating clear liquid diet, expelling flatus. Tolerating up out of the bed to chair. Encouraged to continue use of incentive spirometry, and bronchodilator treatments.SBP elevated this a.m., PRN antihypertensives administered. 08/12: Afebrile. Patient's pain well controlled, TRAFFIC SIGNAL SUPERVISOR MAINTENANCE to be discontinued this a.m. and transitioned to PO. Patient tolerating diet. Bowel regimen initiated. Antihypertensives scheduled medications increased in frequency and dosing. BP well controlled, tentative transfer for CPCU today. Objective Vital Signs Date Time Temp Pulse Resp B/P (MAP) Pulse Ox O2 Delivery O2 Flow Rate FiO2 08/12/17 06:00 16 08/12/17 03:00 99.4 80 147/79 (101) 95 08/12/17 03:00 Simple Mask 10.00 Intake and Output 08/12/17 08/12/17 08/13/17 08:00 16:00 00:00 Intake Total 936 ml Output Total 1090 ml Balance -154 ml Result Diagram: 08/11/17 0410 08/12/17 0445 Imaging Postoperative Chest x-ray pending Objective Remarks GENERAL: Well-developed well-nourished male in lying in bed in no acute distress. Pain well controlled SKIN: Warm and dry. HEAD: Atraumatic. Normocephalic. EYES: Pupils equal and round. No scleral icterus. No injection or drainage. ENT: No nasal bleeding or discharge. Mucous membranes pink and moist. NECK: Trachea midline. No JVD. CARDIOVASCULAR: Normal rate, regular rhythm. RESPIRATORY: No accessory muscle use. Clear to auscultation. Breath sounds equal bilaterally. On facemask O2 saturation 95%. Chest tube removed, dressing intact GASTROINTESTINAL: Abdomen soft, non-tender, nondistended. No guarding. Incision site with Dermabond no drainage oozing or erythema, abdominal binder in place, bowel sounds active. NGT to LIWS. MUSCULOSKELETAL: Extremities without clubbing, cyanosis, or edema. No obvious deformities bilateral palpable pulses upper and lower extremities NEUROLOGICAL: RASS 0. No gross focal/sensory deficits. Follows commands in all 4 extremities. 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 Assessment S/P thoracoabdominal aneurysm repair POD #3 Postoperative pain-controlled Hyperglycemia-resolved COPD Plan Plan by systems: Neurologic: Morphine infusion pump [employer] SUPER[employer] MAINTENANCE , he discontinued and transitioned to PO medications Continue Fentanyl patch 0.75 mcgs every 72 hours (home med) Neurochecks per ICU protocol Respiratory: Maintain O2 sat greater than 92%, Patient currently on facemask, with O2 saturation 93% Continue incentive spirometry every 4 hours while awake 08/12 Left chest tube removed DuoNeb every 4 hours when necessary 08/12: Follow-up chest x-ray post removal of chest tube Cardiovascular: Maintain systolic blood pressure per Vasc Surgery recommendations <140 mmHg Currently on nicardipine infusion 15 mg/hour(150cc/hr) ,continue to wean off Hydralazine 20 mg every 6 hours PRN SBP > 150mmHg Labetalol 20 mg q 1 hr PRN , Metoprolol 2.5 mg q 6 hr PRN, Hydralazine 20 mg q 1 hr PRN Catapres patch 0.2mg Metoprolol increased to 100 mg twice a day, Amilodipine 20 mg daily, Cardizem frequency increased Renal: -- Strict I/Os FEN/GI: Diet per vascular surgery IVF D5 09/06 @ NS 84/hr discontinued 08/10 Monitor BMP Zofran for nausea Initiation of bowel regimen-Docusate 100 mg twice a day Heme/ID: Monitor CBC Obtain cultures if clinically indicated Endocrine: Glucose monitoring per ICU protocol. Low dose regimen -- SSI Prophylaxis: GI Prophylaxis famotidine DVT Prophylaxis -- SCDs Initiation of pharmacological DVT prophylaxis per vascular surgery recommendations lovenox on 08/10 Lines: Right IJ 08/09 intraop, Peripheral IVs 2 Dispo: Level II Discussed with Dr. Johnson SHEEP FARM MANAGER (Tyler) and patient at bedside. Tentative transfer to CPCU today. Thank you for participation in the care of this patient critical care medicine will sign off. Physician Zara Del Angel MD Aug 12, 2017 07:58
[2017-08-12] MEDS: INSULIN ASPART SUPPLEMENTAL SCALE SQ SCH ×4 (08:00→21:00)
--- NOTE | 2017-08-12 08:25 | RADRPT ---
EXAM DATE/TIME: 08/12/2017 07:48 [facility] COMPARISON: CHEST SINGLE AP, August 10, 2017, 8:53. INDICATIONS : Shortness of breath, evaluation for pneumothorax post chest tube removal. MEDICAL HISTORY : None. SURGICAL HISTORY : Aortic aneurysm repair. CABG. ENCOUNTER: Initial ACUITY: 1 day PAIN SCORE: 0/10 LOCATION: Bilateral chest FINDINGS: Stable right IJ central line. Interval removal of NGT and left apical chest tube. There is a small ap ical pneumothorax with new apparent deep sulcus. Mild left lower lobe airspace disease. Cardiomediast inal contours are stable. Remainder of the exam is unchanged. CONCLUSION: 1. Small left apical pneumothorax status post chest tube removal. This may be underestimated given an apparent deep sulcus sign. Consider repeat radiographs in 2-4 hours if the chest tube was very recen tly removed. 2. Mild left lower lobe airspace disease, likely atelectasis. Valentin Calixto MD on August 12, 2017 at 8:20 Board Certified Radiologist. This report was verified electronically.
[2017-08-12] MEDS: METOPROLOL TARTRATE 100 MG TAB PO SCH ×2 (08:30→21:01)
[2017-08-12] MEDS: EZETIMIBE 10 MG TAB PO SCH (08:30)
[2017-08-12] MEDS: DOCUSATE SODIUM 50 MG/SENNA 8.6 MG TAB PO SCH ×4 (08:30→21:01)
[2017-08-12] MEDS: FAMOTIDINE 20 MG/2 ML VIAL IV PUSH SCH ×2 (08:30→21:01)
[2017-08-12] MEDS: ASPIRIN 81 MG CHEW TAB PO SCH (08:30)
[2017-08-12] MEDS: oxyCODONE/ACETAMINOPHEN 10 MG/325 MG TAB PO PRN ×3 (08:40→16:16)
--- NOTE | 2017-08-12 11:04 | MP ---
cc: LAUREN JOHNSON DATE OF SURGERY 08/09/17 PREOPERATIVE DIAGNOSIS Thoracoabdominal aortic aneurysm POSTOPERATIVE DIAGNOSIS Thoracoabdominal aortic aneurysm PROCEDURE 1. Open retroperitoneal repair of a thoracoabdominal aortic aneurysm with a 23 minute supramesenteric cross clamp 2. Left renal artery bypass with a 6 mm Dacron 3. Inferior mesenteric artery reimplantation MEDICATIONS Abdirahman Johnson MD AIRDROP SYSTEMS TECHNICIAN SURGEON N. ____ ANESTHESIA General INDICATIONS Mr. Sutton is a 61-year gentleman with a 6.1 cm thoracoabdominal aortic aneurysm. This is not amendable to standard endovascular therapy and he is in otherwise reasonable shape and I offered him an open retroperitoneal repair. A thorough discussion of the risk and benefits were described to the patient. He accepted. DESCRIPTION OF PROCEDURE Informed consent was obtained by the patient. He was taken to the operating room and placed supine on the operating table. Appropriate time-out was taken to ensure patient's identity, operative site and planned procedure. One gram of vancomycin was initiated prior to skin incision, will be discontinued after single preoperative dose. Vancomycin was chosen because of the patient's PENICILLIN ALLERGY. Everyone in the room agreed to time-out and we proceeded. He was placed in thoracoabdominal position with all pressure points carefully padded. An incision was made after prepping and draping his chest, abdomen and pelvis and thighs and an incision made in the left lateral flank, carried down to subcutaneous tissue with electrocautery. The muscle was divided and the peritoneum was identified and swept medially. A portion of the rib was removed and an intercostal incision was then made. The diaphragm was divided without difficulty. The patient's abdominal contents were swept medially and the aorta was dissected free. The left renal artery was circumferentially dissected as was the celiac, SMA and right renal arteries. The ring appeared to emanate at the base of the right renal artery and the clamp was most easily placed just above the superior mesenteric artery and below the celiac artery. An umbilical tape was placed in this location. We then dissected down to the aortic bifurcation taking caution to preserve the ureter at all times. The bilateral common iliac arteries were separately dissected free. At this point, a 20 mm Dacron was brought up onto the field. A graftotomy was then made with an 11 blade and Jass scissors and 6 mm Dacron was cut and spatulated and sewn end-to-side to the 20 mm Dacron creating a single long bifurcated device. The patient was then systemically heparinized and throughout the remainder of the case the heparin was rebolused to keep the ACT greater than 250. With the conjunction of anesthesia distal control of the aorta was obtained with profunda clamps on the common iliac arteries. A translaminar profunda clamp was placed on the superior mesenteric artery as well as the right renal artery. The left renal artery was clamped proximally with large hemo-clips and then transected and a Serevent clamp was placed on the distal aspect of the left renal artery. The aorta was clamped in between the SMA and celiac arteries and the aorta was opened. Lumbar arteries were oversewn with silk suture. A sewing ring was identified just at the base of the right renal artery, but above the left renal artery which had been transected. The 20 mm Dacron was spatulated and sewn end-to-end with running 3-0 Prolene suture. The completion repair sutures were made with 4-0 pledgeted Prolene and the clamps were released which confirmed hemostasis. A Uriel soft jaw was placed in the aortic graft and a transplant profunda was placed in the side arm graft. The clamps were removed from the SMA and right renal and there was a nice palpable pulse in both of these blood vessels. The left renal artery was cut and spatulated and the 6 mm Dacron was cut to appropriate length and also spatulated. The 6 mm Dacron was then sewn end-to-end to the left renal artery with running 6-0 Prolene suture. At the completion, it was flushed, the clamps were released and there was a nice palpable pulse in the left renal artery. We then turned our attention towards the distal aspect of the aorta. The inferior mesenteric artery was divided proximally and clamped with a Serevent clamped away from the aorta. The terminal portion of the aorta was divided, endarterectomized and the 20 mm Dacron was spatulated and sewn end-to-end to the terminal aorta with running 3-0 Prolene suture. At the completion, the clamps released and manual pressure was held on the femoral arteries. In conjunction with anesthesia, the pelvis and lower extremities were reperfused without any difficulty. A Satinsky side-biting clamp was then placed on the distal aspect of the aortograft and a graftotomy was made with an 11 blade and extended with Jass scissors. The MGAUE was spatulated and sewn end-to-side with running 6-0 Prolene suture. At the completion, it was flushed and noted to be hemostatic. There was a nice palpable pulse in the inferior mesenteric artery. All the anastomoses were hemostatic. The wounds were irrigated. The heparin reversed with protamine. Two units FFP were administered and the abdominal contents were allowed to return to their normal anatomic position. MD DORIS Patterson/ /8:14 PM /11:00 AM
[2017-08-12] MEDS: ENOXAPARIN SODIUM 40 MG/0.4 ML SYRINGE SQ SCH (12:29)
[2017-08-12] MEDS: MORPHINE SULFATE 4 MG/ML INJ IV PUSH PRN (17:30)
[2017-08-12] MEDS: ATORVASTATIN 40 MG TAB PO SCH (21:00)
[2017-08-12] MEDS: HYDROmorphone HCL 2 MG TAB PO PRN (21:01)
[2017-08-13] VITALS (28 sets, daily range): BP systolic 134–161; BP diastolic 67–78; PULSE 72–108; RESP 18–25; TEMP 98–99.1; O2SAT 90–94
[2017-08-13] MEDS: MORPHINE SULFATE 4 MG/ML INJ IV PUSH PRN (02:08)
[2017-08-13] MEDS: RESP: ALBUTEROL 2.5 MG/IPRATROPIUM 0.5 MG NEB (PRN) NEB (02:52)
[2017-08-13] MEDS: hydrALAZINE HCL 20 MG/ML VIAL IV PUSH PRN ×2 (02:57→17:04)
--- NOTE | 2017-08-13 05:30 | RADRPT ---
EXAM DATE/TIME: 08/13/2017 04:41 [facility] COMPARISON: CHEST SINGLE AP, August 12, 2017, 7:48. INDICATIONS : Shortness of breath, possible pulmonary disease. MEDICAL HISTORY : Aortic Aneurysm SURGICAL HISTORY : CABG. Aortic aneurysm repair ENCOUNTER: Subsequent ACUITY: 4 - 6 days PAIN SCORE: 6/10 LOCATION: Bilateral chest FINDINGS: Cardiomegaly and median sternotomy wires are noted. A right jugular line identified. There is consoli dation in the left lower lobe unchanged. CONCLUSION: Stable appearance of the chest. Mati Perez MD on August 13, 2017 at 5:27 Board Certified Radiologist. This report was verified electronically.
[2017-08-13] MEDS: INSULIN ASPART SUPPLEMENTAL SCALE SQ SCH ×4 (08:00→21:00)
[2017-08-13] MEDS: ASPIRIN 81 MG CHEW TAB PO SCH (08:33)
[2017-08-13] MEDS: FAMOTIDINE 20 MG/2 ML VIAL IV PUSH SCH ×2 (08:33→21:00)
[2017-08-13] MEDS: HYDROmorphone HCL 2 MG TAB PO PRN ×4 (08:33→21:01)
[2017-08-13] MEDS: DOCUSATE SODIUM 50 MG/SENNA 8.6 MG TAB PO SCH ×4 (08:33→21:00)
[2017-08-13] MEDS: METOPROLOL TARTRATE 100 MG TAB PO SCH ×2 (08:33→21:00)
[2017-08-13] MEDS: EZETIMIBE 10 MG TAB PO SCH (09:21)
--- NOTE | 2017-08-13 09:36 | PD.VS.PN ---
Subjective POD #: 4 Procedure(s): TAAA with L RA bypass and MAGUE reimplantation Subjective/Hospital Course looks wonderful, OOB and ambulated yesterday kendrick po pain controlled Objective Vitals/I&O Date Time Temp Pulse Resp B/P (MAP) Pulse Ox O2 Delivery O2 Flow Rate FiO2 08/13/17 07:34 98.2 89 22 146/78 (100) 93 08/13/17 07:34 93 Nasal Cannula 5.00 08/13/17 06:12 87 08/13/17 05:17 96 08/13/17 04:24 80 08/13/17 03:35 94 Nasal Cannula 6.00 08/13/17 03:35 82 08/13/17 03:35 99.1 79 19 156/67 (96) 93 08/13/17 02:55 93 Nasal Cannula 5.00 08/13/17 01:06 74 08/12/17 23:50 98.7 70 18 167/81 (109) 92 08/12/17 23:50 92 Nasal Cannula 6.00 08/12/17 23:50 72 08/12/17 22:00 78 08/12/17 21:00 80 08/12/17 20:00 72 08/12/17 19:40 93 Nasal Cannula 5.00 08/12/17 19:40 77 08/12/17 19:40 99.5 79 19 150/77 (101) 93 08/12/17 18:00 90 08/12/17 17:48 18 08/12/17 17:32 18 08/12/17 17:00 74 08/12/17 16:19 98.4 79 18 143/70 (94) 93 08/12/17 16:01 81 08/12/17 16:00 81 08/12/17 12:11 75 08/12/17 12:11 Nasal Cannula 6.00 08/12/17 12:07 99.2 75 16 116/58 (77) 94 08/12/17 12:00 79 08/12/17 11:00 71 08/12/17 11:00 Nasal Cannula 6.00 08/12/17 11:00 98.3 71 16 146/77 (100) 94 08/13/17 08/13/17 08/13/17 06:59 14:59 22:59 Intake Total 720 ml Output Total 710 ml Balance 10 ml Exam: resting comfortably incision c/d/i Imaging CXR shows resolution of apical PTX Assessment and Plan Plan POD#4 s/p TAAA repair 1. d/c CVL 2. OOB/PT 3. po meds Discharge Planning likely Tue or Tuesday Alex Johnson MD Aug 13, 2017 09:36
[2017-08-13] MEDS ORDERED: REMOVE OLD DURAGESIC (FENTANYL) PATCH T-DERMAL SCH (11:00)
[2017-08-13] MEDS: fentaNYL 75 MCG/HR PATCH T-DERMAL SCH (11:02)
[2017-08-13] MEDS: ENOXAPARIN SODIUM 40 MG/0.4 ML SYRINGE SQ SCH (12:51)
[2017-08-13] MEDS ORDERED: traZODone HCL 50 MG TAB PO SCH (21:00)
[2017-08-14] VITALS (14 sets, daily range): BP systolic 128–160; BP diastolic 61–83; PULSE 63–106; RESP 19–20; TEMP 97.7–98.2; O2SAT 93–95
[2017-08-14] MEDS: hydrALAZINE HCL 20 MG/ML VIAL IV PUSH PRN (03:28)
--- NOTE | 2017-08-14 08:58 | PD.VS.PN ---
Subjective POD #: 5 Procedure(s): TAAA with L RA bypass and MAGUE reimplantation Subjective/Hospital Course looks wonderful, OOB and ambulated yesterday kendrick po pain controlled only persistent issue is O2 sats - CXR looked good Objective Vitals/I&O Date Time Temp Pulse Resp B/P (MAP) Pulse Ox O2 Delivery O2 Flow Rate FiO2 08/14/17 07:00 74 08/14/17 06:18 82 08/14/17 05:07 76 08/14/17 04:57 85 08/14/17 03:40 4 Nasal Cannula 3.00 08/14/17 03:40 98.0 72 19 160/83 (108) 93 08/14/17 03:40 84 08/14/17 02:07 74 08/14/17 01:17 78 08/14/17 00:16 72 08/13/17 23:10 98.5 80 18 150/72 (98) 94 08/13/17 23:10 82 08/13/17 23:10 4 Nasal Cannula 3.00 08/13/17 22:34 74 08/13/17 21:00 79 08/13/17 20:00 72 08/13/17 19:20 98.7 93 18 150/75 (100) 92 08/13/17 19:20 92 Nasal Cannula 4.00 08/13/17 19:20 108 08/13/17 18:24 91 Nasal Cannula 4.00 08/13/17 18:00 98 08/13/17 17:00 86 08/13/17 16:00 77 08/13/17 15:34 98.3 77 22 161/77 (105) 91 08/13/17 15:34 91 Nasal Cannula 4.00 08/13/17 15:00 78 08/13/17 14:02 93 Nasal Cannula 4.00 08/13/17 14:00 83 08/13/17 13:00 85 08/13/17 12:00 81 08/13/17 11:41 90 Nasal Cannula 4.00 08/13/17 11:41 98.0 90 25 134/67 (89) 90 08/13/17 11:00 101 08/13/17 10:00 87 08/13/17 09:00 90 08/14/17 08/14/17 08/14/17 07:00 15:00 23:00 Intake Total 720 ml Output Total 400 ml Balance 320 ml Exam: resting comfortably, no distress no SOB neuro intact Assessment and Plan Plan POD#5 s/p TAAA repair 1.potentially can d/c today if wean from O2 Discharge Planning likely Tue or Tuesday Alex Johnson MD Aug 14, 2017 08:58
[2017-08-14] MEDS: INSULIN ASPART SUPPLEMENTAL SCALE SQ SCH ×2 (09:00→12:00)
[2017-08-14] MEDS: DOCUSATE SODIUM 50 MG/SENNA 8.6 MG TAB PO SCH ×2 (09:00)
[2017-08-14] MEDS: ASPIRIN 81 MG CHEW TAB PO SCH (09:14)
[2017-08-14] MEDS: EZETIMIBE 10 MG TAB PO SCH (09:14)
[2017-08-14] MEDS: FAMOTIDINE 20 MG/2 ML VIAL IV PUSH SCH (09:14)
[2017-08-14] MEDS: METOPROLOL TARTRATE 100 MG TAB PO SCH (09:14)
--- NOTE | 2017-08-14 12:15 | PD.VS.DC ---
Discharge Summary Admission Date: Aug 09, 2017 at 06:11 Discharge Date: Aug 14, 2017 Admission Diagnosis: (1) Thoracoabdominal aortic aneurysm (TAAA) without rupture Discharge Diagnosis: (1) Thoracoabdominal aortic aneurysm (TAAA) without rupture ICD Codes: I71.6 - Thoracoabdominal aortic aneurysm, without rupture Status: Resolved Brief History from admission 61 yo male with asymptomatic thoracoabdominal aortic aneurysm. He was offered elective open (retroperitoneal) repair. Procedure(s): TAAA with L RA bypass and MAGUE reimplantation Significant Findings Laboratory Tests Test 08/12/ 04:45 Blood Urea Nitrogen 24 MG/DL (7-18) Random Glucose 117 MG/DL (74-106) Hospital Course: The patient underwent open retroperitoneal repair of TAAA including supra- mesenteric cross-clamping and LEFT renal artery bypass and MAGUE reimplantation. He did very well post-operatively and was transferred to the floor from the ICU on POD#3, only being in the ICU because of refractory HTN. His creatinine and Hct remained stable throughout. At the time of discharge on POD#5, he was tolerating a regular diet, having normal bowel movements and having no problems with UOP. He was ambulating independently, off [place] O2 and ready for D/c. Discharge Condition: Good Discharge Disposition: Discharge Home Any questions or concerns: Call [facility] at [facility] [phone] Our office will call him Tuesday to schedule a f/u appointment. Alex Johnson MD Aug 14, 2017 12:15
[2017-08-14] MEDS: ENOXAPARIN SODIUM 40 MG/0.4 ML SYRINGE SQ SCH (13:00)
[2017-08-17] MEDS ORDERED: REMOVE OLD CATAPRES (CLONIDINE) PATCH T-DERMAL SCH (10:00)
== END 2017-08-14 14:38 | disposition home or self-care (01) | DRG 269 ==
LOC: HSDI 06:11 → HCVI 12:20 → HCPC 08-12 12:15
PROVIDERS: ADMIT Surgery; ATTEND Surgery
PROC: 04U00JZ Supplement Abdominal Aorta with Synthetic Substitute, Open Approach (ICD-10-PCS; 2017-08-09)
PROC: 04SB0ZZ Reposition Inferior Mesenteric Artery, Open Approach (ICD-10-PCS; 2017-08-09)
PROC: 30233K1 Transfusion of Nonautologous Frozen Plasma into Peripheral Vein, Percutaneous Approach (ICD-10-PCS; 2017-08-09)
PROC: 041 Lower Arteries, Bypass (ICD-10-PCS; principal; 2017-08-09 07:46)
DX: I71.6 Thoracoabdominal aortic aneurysm, without rupture (principal); K22.0 Achalasia of cardia; J44.9 Chronic obstructive pulmonary disease, unspecified; I10 Essential (primary) hypertension; G89.4 Chronic pain syndrome; R73.9 Hyperglycemia, unspecified; I25.2 Old myocardial infarction; I25.10 Atherosclerotic heart disease of native coronary artery without angina pectoris; M19.90 Unspecified osteoarthritis, unspecified site; F32.9 Major depressive disorder, single episode, unspecified; Z23 Encounter for immunization; Z82.49 Family history of ischemic heart disease and other diseases of the circulatory system; Z85.828 Personal history of other malignant neoplasm of skin; Z87.891 Personal history of nicotine dependence; Z88.0 Allergy status to penicillin; Z90.81 Acquired absence of spleen; Z95.1 Presence of aortocoronary bypass graft
CPT/HCPCS: 36430; 71010; 80048; 82948; 85027; 86850; 86900; 86901; 86920; 86927; 90686; 90732; 94150; 94640; 94664; C9290; J0131; J0360; J1644; J1650; J1815; J2150; J2270; J2405; J2720; J3370; J3480; J7050; J7120; P9017; Q2038